=== PATIENT | female | born 1950 | race African-American/Black ===

== ENCOUNTER 2022-05-13 19:29 | Emergency (ER) | payer SELFPAY ==
[~2022-05-13] VITALS: Ht 157.5 cm; Wt 100.0 kg
[2022-05-13 23:10] VITALS: BP 118/62
== END 2022-05-13 23:52 | disposition home or self-care (01) ==
LOC: ER 19:29
DX: R09.89 Other specified symptoms and signs involving the circulatory and respiratory systems (principal); J02.9 Acute pharyngitis, unspecified; J44.9 Chronic obstructive pulmonary disease, unspecified; E11.9 Type 2 diabetes mellitus without complications
CPT/HCPCS: 70360; 99283